=== PATIENT | male | born 1985 | race Two or more races ===

== ENCOUNTER 2024-10-16 20:56 | Observation (INO) ==
[2024-10-16 21:28] LABS: Hematocrit (blood only) 43.3 % (42.0-52.0); Hemoglobin 14.8 g/dl (14.0-18.0); Immature Granulocytes # (auto) 0.02 K/uL (0.01-0.20); Immature Granulocytes % (auto) 0.3 %; Mean Corpuscular Hemoglobin 28.9 pg (25.0-34.0); Mean Corpuscular Volume 84.6 fL (80.0-100.0); Platelet Count 192 K/uL (130-400); RDW Standard Deviation 37.0 fL (36.4-46.3); Red Blood Count 5.12 M/uL (4.70-6.10); White Blood Count 7.53 K/ul (4.8-10.8)
[2024-10-16 21:49] LABS: Alanine Aminotransferase 30.0 U/L (7-52); Albumin Globulin Ratio 1.4 (0.9-2); Alkaline Phosphatase 83.0 U/L (34-104); Anion Gap 5.0 (3-11); Bilirubin,Total 0.4 mg/dl (0.2-1.0); Blood Urea Nitrogen 12.0 mg/dl (6-23); Calcium 9.1 mg/dl (8.6-10.3); Carbon Dioxide 27.0 mmol/L (21-32); Chloride 108.0 mmol/L (98-107); Creatinine Clr Calc Pharmacy 108.0 ml/min; Globulin 3.0 gm/dl (2.5-4.0); Glucose 121.0 mg/dl (70-99(Fasting)); Potassium 3.8 mmol/L (3.5-5.1); Sodium 140.0 mmol/L (136-145); Total Protein 7.3 gm/dl (6.0-8.3)
[2024-10-16 21:55] LABS: INR 1.0 (0.9-1.1); Partial Thromboplastin Time 29 Seconds (21-31); Prothrombin Time 10.7 Seconds (9.0-12.0)
[2024-10-16] MEDS: OPTIRAY 320 125ml IV ONE (23:53)
--- NOTE | 2024-10-16 23:53 | Emergency Department Note ---
Impression & Plan Left sided numbness, Chest pain ED Provider Note NAME: SANDY [id number] RADHA AGE: 39 SEX: Male INFORMANT: Patient ED PROVIDER(S): Perry Osei MD CHIEF COMPLAINT: Left-sided numbness and chest pain PLAN: Disposition: Admitted Outpatient prescription management: none Referral: None MEDICAL DECISION MAKING: Patient presented because of left-sided tingling and chest discomfort. Cardiac troponins were negative x 2. ECG did not show any acute ischemia. CT and CT angiography was performed. Patient had a nonfocal neurologic examination. There was a delay in imaging secondary to a backlog from radiology. No obvious abnormalities were noted on CT or CT angiography of the head and neck. Given the neurologic symptoms and chest discomfort further evaluation management in the hospital is felt to be appropriate. Consultation was made with Dr. Herbie Scott of the [facility] service. Patient was evaluated in the ER for further management. Care/management discussed with: none Level of care consideration(s): After review of the information above and other included data, I feel the patient requires escalation of care to admission Triage Nursing notes: reviewed and agree them. Vital Signs: reviewed and remarkable for no significant abnormalities Additional History obtained from: none Chronic Medical/Social Conditions affecting care: none Prior/ Outside/ External records reviewed: none Differential Diagnosis: Cardiac ischemia, TIA, CVA, aortic dissection, pulmonary embolism, pneumothorax, pneumonia, pericarditis, myocarditis, esophageal rupture, GERD, cholecystitis, pancreatitis, musculoskeletal, as well as other pathologies. Diagnostics, independently interpreted by me: ECG: Twelve-lead ECG reveals normal sinus rhythm at [address] elevation or depression. No PACs or PVCs. Cardiac Monitoring: Cardiac monitoring ordered by me: The patient was placed on continuous cardiac monitoring and observed. It revealed a normal sinus rhythm at 80 beats per minute without ectopy or evidence of dysrhythmia. Medical decision rules: none Imaging studies: Chest x-ray. Findings: A chest x-ray was performed and revealed no pneumothorax, effusion, infiltrate, pulmonary edema, free air under the diaphragm, or wide mediastinum. Impression: No acute disease. HPI: 39 year old Male arrives for evaluation of left-sided numbness and chest pain. This started around 7 PM and is nearly resolved. The patient also notes the following associated symptoms, none. Patient states that he was working on paperwork and developed numbness and tingling in the left side of his face. This migrated down through his left arm and all the way down through his left leg. He also noted some in his genitalia. Patient denies any right sided symptoms. At the same time he was getting chest discomfort. Patient was seen at the [facility] and ECG was normal. EMS was summoned. EMS noted no deficits. The patient has been given no medication for relieving factors. Current pain is rated as 0/10. Pt denies LOC, headache, fevers, chills, diaphoresis, visual changes, neck pain, breathing difficulties, nausea, vomiting, abdominal pain, back pain, melena, hematochezia, urinary symptoms, weakness, lymphadenopathy, rash, or other complaints.. PAST MEDICAL HISTORY: See Below, patient denies PAST SURGICAL HISTORY: See Below, SOCIAL HISTORY: See Below, incarcerated HOME MEDICATIONS: See Below ALLERGIES: See Below VITALS: See Below PHYSICAL EXAMINATION: GENERAL: Awake, alert, well-appearing, in no distress HENT: Normocephalic, atraumatic. Oropharynx unremarkable. EYES: Normal conjunctiva. Sclera non-icteric. PERRLA. EOMI. NECK: Inspection normal. Non-tender. Supple. No nuchal rigidity. FROM. No masses. RESPIRATORY: Clear to auscultation. No wheezes. No rales. Normal respiratory effort. CARDIAC: Normal rate. Normal rhythm. No murmurs. No rubs. Extremities warm and well perfused. Pulses equal. No JVD. GI: Soft, non-distended. No tenderness to palpation. No rebound or guarding. No masses. RECTAL: Deferred. MUSCULOSKELETAL: Atraumatic. Chest examination reveals no tenderness. The back is symmetrical on inspection without obvious abnormality. There is no CVA tenderness to palpation. No joint edema. LOWER EXTREMITIES: Calves are equal size bilaterally and non-tender. No edema. No discoloration. NEURO: Normal sensorium. Patient had some subjective tingling in the face but no other sensory or motor deficits noted. No drift. Normal rapid alternating movements. Speech normal. SKIN: No rash or jaundice noted. PROCEDURES: none CRITICAL CARE: none OBSERVATION NOTE: none Past Med/Surg History Problem List (Updated 10/17/24 @ 03:43 by Carla Mack PA-C) Hyperlipidemia Spinal stenosis of cervical region Chest pain (Acute) Left sided numbness (Acute) Social History Smoking Status: Never smoker Hx Alcohol Use: No Hx Substance Use: No Preferred Language: [place] Rican Communication Ability: Effective Digital Media Strategist Required: No Beliefs That Will Affect Care: None Current Living Situation: Other Feels Safe at Home: Yes Assistive Devices: None Allergies Allergies Allergy/AdvReac Type Severity Reaction Status Date / Time No Known Allergies Allergy Unverified 10/16/24 22:16 Home Meds Home Medications Medication Instructions Recorded Confirmed atorvastatin 40 mg tablet 40 mg PO DAILY 10/16/24 10/16/24 mirtazapine 15 mg tablet 15 mg PO HS 10/16/24 10/16/24 Results & Data (ED) Vital Signs Vital Signs - 24 hr 10/16/24 21:02 10/16/24 21:04 10/16/24 21:13 Temperature 36.7 C Temperature Source Oral Pulse Rate 75 79 Pulse Rate [Finger] Respiratory Rate 20 Blood Pressure 152/96 H Blood Pressure [Left Arm] Blood Pressure Mean 114 Blood Pressure Mean [Left Arm] Blood Pressure Position Sitting Pulse Oximetry 97 97 Oxygen Delivery Method Room Air Room Air Sepsis Recent Fever Within 48 Hours No Sepsis New/Unexplained Change in Mental Status N/A Sepsis Action Taken by Nursing No Action Required 10/16/24 22:03 10/16/24 23:00 10/17/24 00:30 Temperature Temperature Source Pulse Rate 69 61 Pulse Rate [Finger] 80 Respiratory Rate 20 16 18 Blood Pressure 145/98 H 159/111 H Blood Pressure [Left Arm] 152/96 H Blood Pressure Mean 115 120 Blood Pressure Mean [Left Arm] 114 Blood Pressure Position Pulse Oximetry 97 97 97 Oxygen Delivery Method Room Air Sepsis Recent Fever Within 48 Hours Sepsis New/Unexplained Change in Mental Status Sepsis Action Taken by Nursing 10/17/24 01:01 10/17/24 01:34 10/17/24 02:00 Temperature Temperature Source Pulse Rate 69 58 L 55 L Pulse Rate [Finger] Respiratory Rate 18 20 Blood Pressure 153/97 H 151/93 H Blood Pressure [Left Arm] Blood Pressure Mean 104 109 Blood Pressure Mean [Left Arm] Blood Pressure Position Pulse Oximetry 97 96 Oxygen Delivery Method Room Air Room Air Sepsis Recent Fever Within 48 Hours Sepsis New/Unexplained Change in Mental Status Sepsis Action Taken by Nursing 10/17/24 02:30 10/17/24 03:00 Temperature Temperature Source Pulse Rate 79 79 Pulse Rate [Finger] Respiratory Rate 18 20 Blood Pressure 133/93 148/93 H Blood Pressure [Left Arm] Blood Pressure Mean 101 112 Blood Pressure Mean [Left Arm] Blood Pressure Position Pulse Oximetry 96 97 Oxygen Delivery Method Room Air Sepsis Recent Fever Within 48 Hours Sepsis New/Unexplained Change in Mental Status Sepsis Action Taken by Nursing Laboratory Data 10/16/24 21:14 10/16/24 21:14 Lab Results 10/16/24 10/16/24 Range/Units 21:14 22:55 WBC 7.53 (4.8-10.8) K/ul RBC 5.12 (4.70-6.10) M/uL Hgb 14.8 (14.0-18.0) g/dl Hct 43.3 (42.0-52.0) % MCV 84.6 (80.0-100.0) fL MCH 28.9 (25.0-34.0) pg MCHC 34.2 (32.0-36.0) g/dL RDW Std Deviation 37.0 (36.4-46.3) fL RDW Coeff of Jessi 12.3 (11.5-14.5) % Plt Count 192 (130-400) K/uL MPV 10.4 (9.4-12.4) fL Immature Gran % (Auto) 0.3 % Neut % (Auto) 50.3 % Lymph % (Auto) 38.1 % Bacon % (Auto) 8.0 % Eos % (Auto) 2.9 % Baso % (Auto) 0.4 % Neut # (Auto) 3.79 (1.40-6.50) K/uL Lymph # (Auto) 2.87 (1.20-3.40) K/uL Bacon # (Auto) 0.60 H (0.11-0.59) K/uL Eos # (Auto) 0.22 (0.00-0.50) K/uL Baso # (Auto) 0.03 (0.00-0.20) K/uL Immature Gran # (Auto) 0.02 (0.01-0.20) K/uL PT 10.7 (9.0-12.0) Seconds INR 1.0 (0.9-1.1) APTT 29 (21-31) Seconds PTT Ratio 1.1 Sodium 140 (136-145) mmol/L Potassium 3.8 (3.5-5.1) mmol/L Chloride 108 H (98-107) mmol/L Carbon Dioxide 27 (21-32) mmol/L Anion Gap 5 (3-11) BUN 12 (6-23) mg/dl Creatinine 1.11 (0.6-1.4) mg/dl Est Cr Clr Drug Dosing 108.0 ml/min eGFR 86.09 BUN/Creatinine Ratio 10.8 (10-20) Glucose 121 H (70-99(Fasting)) mg/dl Calcium 9.1 (8.6-10.3) mg/dl Total Bilirubin 0.4 (0.2-1.0) mg/dl AST 28 (13-39) U/L ALT 30 (7-52) U/L Alkaline Phosphatase 83 (34-104) U/L Troponin I High Sens 17.4 18.0 (0-20) pg/ml Total Protein 7.3 (6.0-8.3) gm/dl Albumin 4.3 (3.4-5.0) gm/dl Globulin 3.0 (2.5-4.0) gm/dl Albumin/Globulin Ratio 1.4 (0.9-2) Administered Medications Aspirin (Aspirin 81 Mg Ectab) 81 mg PO [facility] Stop: 11/16/24 08:59 Last Admin: 10/17/24 08:55 Dose: 81 mg Documented By: MANAV Atorvastatin Calcium (Atorvastatin 40 Mg Tab) 40 mg PO DAILY [facility] Stop: 11/16/24 08:59 Last Admin: 10/17/24 08:55 Dose: 40 mg Documented By: MANAV Clopidogrel Bis[facility] ([facility]rel [facility] 75 Mg Tab) [facility]: 11/16/24 08:59 Last Admin: 10/17/24 08:55 Dose: 75 mg Documented By: MANAV Cyanocobalamin (Cyanocobalamin (B-12) 500 Mcg Tablet) 1,000 [facility]cg [facility] Stop: 11/16/24 17:29 Last Admin: 10/17/24 17:55 Dose: 1,000 mcg Documented By: MANAV Discontinued Medications Aspirin (Aspirin Chew 324 Mg) 324 mg PO NOW [facility] Stop: 10/17/24 03:28 Last Admin: 10/17/24 03:48 Dose: 324 mg Documented By: MARIANO Clopidogrel Bisulfate (Clopidogrel Bisulfate 300 Mg Tab) 300 mg PO NOW [facility] Stop: 10/17/24 03:28 Last Admin: 10/17/24 03:48 Dose: 300 mg Documented By: MARIANO Ioversol (Optiray 320 125ml) 118 ml IV ONCE ONE Stop: 10/16/24 23:54 Last Admin: 10/16/24 23:53 Dose: 118 ml Documented By: LEÓN Imaging Data Radiologist's Impression: Chest X-Ray 10/16/24 21:10 Exam(s): XR CXR 1 VIEW EXAM: XR Chest, 1 View CLINICAL HISTORY: Reason for exam: Chest pain, nonspecific. TECHNIQUE: Frontal view of the chest. COMPARISON: No relevant prior studies available. FINDINGS: Lungs: Mild to moderate peribronchial thickening of the central and lower lobe bronchi.. No consolidation. Pleural space: Unremarkable. No pneumothorax. Heart: Unremarkable. No cardiomegaly. Mediastinum: Unremarkable. Normal mediastinal contour. Bones/joints: Unremarkable. No acute fracture. IMPRESSION: Bronchitis, which may be of infectious or inflammatory etiologies. No consolidation or pleural effusion. Electronically signed by: Deb Munroe MD 10/17/24 00:15 AM Head CTA 10/16/24 23:13 Exam(s): CTA HEAD W/WO Contrast IV Amt: 118 cc's optiray 320- EXAM: CT Angiography Head Without and With Intravenous Contrast CLINICAL HISTORY: Reason for exam: left sided numbness. TECHNIQUE: Axial computed tomographic angiography images of the head without and with intravenous contrast. CTDI is 22.84 mGy and DLP is 11.42 mGy-cm. Automated exposure control was utilized for the study. A dose lowering technique was utilized adhering to the principles of ALARA. MIP reconstructed images were created and reviewed. CONTRAST: Patient received 118 cc's optiray 320- of IV contrast COMPARISON: No relevant prior studies available. FINDINGS: VASCULATURE: The dural venous sinuses are patent. Right internal carotid artery: No acute findings. Intracranial segment is patent with no significant stenosis. No aneurysm. Right anterior cerebral artery: Unremarkable. No occlusion or significant stenosis. No aneurysm. Right middle cerebral artery: Unremarkable. No occlusion or significant stenosis. No aneurysm. Right posterior cerebral artery: Unremarkable. No occlusion or significant stenosis. No aneurysm. Right vertebral artery: Unremarkable as visualized. Left internal carotid artery: No acute findings. Intracranial segment is patent with no significant stenosis. No aneurysm. Left anterior cerebral artery: Unremarkable. No occlusion or significant stenosis. No aneurysm. Left middle cerebral artery: Unremarkable. No occlusion or significant stenosis. No aneurysm. Left posterior cerebral artery: Unremarkable. No occlusion or significant stenosis. No aneurysm. Left vertebral artery: Unremarkable as visualized. Basilar artery: Unremarkable. No occlusion or significant stenosis. No aneurysm. HEAD: Brain: No acute findings. No hemorrhage. No edema. Normal enhancement. Ventricles: Unremarkable. No ventriculomegaly. Bones/joints: No acute fracture. Soft tissues: Unremarkable. Sinuses: Unremarkable as visualized. No acute sinusitis. Mastoid air cells: Unremarkable as visualized. No mastoid effusion. IMPRESSION: Negative CT angiogram of the head. Electronically signed by: Deb Munroe MD 10/17/24 02:51 AM Neck CTA 10/16/24 23:13 Exam(s): CTA NECK With Contrast IV Amt: 118 cc's optiray 320 EXAM: CT Angiography Neck With Intravenous Contrast CLINICAL HISTORY: Reason for exam: left numbness. TECHNIQUE: Routine carotid CT angiography protocol was performed with intravenous contrast. NASCET criteria using the distal ICAs for comparison were used for evaluation of stenoses. CTDI is 13.24 mGy and DLP is 543.55 mGy-cm. Automated exposure control was utilized for the study. A dose lowering technique was utilized adhering to the principles of ALARA. MIP reconstructed images were created and reviewed. CONTRAST: Patient received 118 cc's optiray 320 of IV contrast COMPARISON: None. FINDINGS: VASCULATURE: Right common carotid artery: Unremarkable. No occlusion or significant stenosis. No dissection. Right internal carotid artery: Unremarkable. Extracranial segment is patent with no occlusion or significant stenosis. No dissection. Right external carotid artery: Unremarkable. No occlusion. Right vertebral artery: Unremarkable. No occlusion or significant stenosis. No dissection. Left common carotid artery: Unremarkable. No occlusion or significant stenosis. No dissection. Left internal carotid artery: Unremarkable. Extracranial segment is patent with no occlusion or significant stenosis. No dissection. Left external carotid artery: Unremarkable. No occlusion. Left vertebral artery: Unremarkable. No occlusion or significant stenosis. No dissection. NECK: Bones/joints: There is a critical spinal canal stenosis at C5-6.. No acute fracture. Soft tissues: Prominent mediastinal lymph nodes. Prominent cervical lymph nodes in the left tonsils. Lung apices: Bronchitis. CAROTID STENOSIS REFERENCE USING NASCET CRITERIA: % ICA stenosis = (1 - narrowest ICA diameter/diameter of distal cervical ICA) x 100. Mild - <50% stenosis. Moderate - 50-69% stenosis. Severe - 70-94% stenosis. Near occlusion - 95-99% stenosis. Occluded - 100% stenosis. IMPRESSION: Negative CTA neck. Critical spinal canal stenosis at C5-6. Recommend MRI of the cervical spine to evaluate for myelopathy. Electronically signed by: Deb Munroe MD 10/17/24 02:47 AM Discharge Plan Visit Data Chief Complaint: Chest Pain Stated Complaint: Chest Pain, L Sided Numbness ED Provider: Perry Osei Discharge Problem: Left sided numbness, Chest pain Patient Disposition: Admitted As Inpatient Condition: Good Discharge Instructions Interventions: ED Discharge Assessment Last Done: 10/17/24 04:27
--- NOTE | 2024-10-17 00:16 | XRay Report ---
Exam(s): XR CXR 1 VIEW EXAM: XR Chest, 1 View CLINICAL HISTORY: Reason for exam: Chest pain, nonspecific. TECHNIQUE: Frontal view of the chest. COMPARISON: No relevant prior studies available. FINDINGS: Lungs: Mild to moderate peribronchial thickening of the central and lower lobe bronchi.. No consolidation. Pleural space: Unremarkable. No pneumothorax. Heart: Unremarkable. No cardiomegaly. Mediastinum: Unremarkable. Normal mediastinal contour. Bones/joints: Unremarkable. No acute fracture. IMPRESSION: Bronchitis, which may be of infectious or inflammatory etiologies. No consolidation or pleural effusion. Electronically signed by: Deb Munroe MD 10/17/24 00:15 AM
--- NOTE | 2024-10-17 02:48 | CT Scan Report ---
Exam(s): CTA NECK With Contrast IV Amt: 118 cc's optiray 320 EXAM: CT Angiography Neck With Intravenous Contrast CLINICAL HISTORY: Reason for exam: left numbness. TECHNIQUE: Routine carotid CT angiography protocol was performed with intravenous contrast. NASCET criteria using the distal ICAs for comparison were used for evaluation of stenoses. CTDI is 13.24 mGy and DLP is 543.55 mGy-cm. Automated exposure control was utilized for the study. A dose lowering technique was utilized adhering to the principles of ALARA. MIP reconstructed images were created and reviewed. CONTRAST: Patient received 118 cc's optiray 320 of IV contrast COMPARISON: None. FINDINGS: VASCULATURE: Right common carotid artery: Unremarkable. No occlusion or significant stenosis. No dissection. Right internal carotid artery: Unremarkable. Extracranial segment is patent with no occlusion or significant stenosis. No dissection. Right external carotid artery: Unremarkable. No occlusion. Right vertebral artery: Unremarkable. No occlusion or significant stenosis. No dissection. Left common carotid artery: Unremarkable. No occlusion or significant stenosis. No dissection. Left internal carotid artery: Unremarkable. Extracranial segment is patent with no occlusion or significant stenosis. No dissection. Left external carotid artery: Unremarkable. No occlusion. Left vertebral artery: Unremarkable. No occlusion or significant stenosis. No dissection. NECK: Bones/joints: There is a critical spinal canal stenosis at C5-6.. No acute fracture. Soft tissues: Prominent mediastinal lymph nodes. Prominent cervical lymph nodes in the left tonsils. Lung apices: Bronchitis. CAROTID STENOSIS REFERENCE USING NASCET CRITERIA: % ICA stenosis = (1 - narrowest ICA diameter/diameter of distal cervical ICA) x 100. Mild - <50% stenosis. Moderate - 50-69% stenosis. Severe - 70-94% stenosis. Near occlusion - 95-99% stenosis. Occluded - 100% stenosis. IMPRESSION: Negative CTA neck. Critical spinal canal stenosis at C5-6. Recommend MRI of the cervical spine to evaluate for myelopathy. Electronically signed by: Deb Munroe MD 10/17/24 02:47 AM
--- NOTE | 2024-10-17 02:53 | CT Scan Report ---
Exam(s): CTA HEAD W/WO Contrast IV Amt: 118 cc's optiray 320- EXAM: CT Angiography Head Without and With Intravenous Contrast CLINICAL HISTORY: Reason for exam: left sided numbness. TECHNIQUE: Axial computed tomographic angiography images of the head without and with intravenous contrast. CTDI is 22.84 mGy and DLP is 11.42 mGy-cm. Automated exposure control was utilized for the study. A dose lowering technique was utilized adhering to the principles of ALARA. MIP reconstructed images were created and reviewed. CONTRAST: Patient received 118 cc's optiray 320- of IV contrast COMPARISON: No relevant prior studies available. FINDINGS: VASCULATURE: The dural venous sinuses are patent. Right internal carotid artery: No acute findings. Intracranial segment is patent with no significant stenosis. No aneurysm. Right anterior cerebral artery: Unremarkable. No occlusion or significant stenosis. No aneurysm. Right middle cerebral artery: Unremarkable. No occlusion or significant stenosis. No aneurysm. Right posterior cerebral artery: Unremarkable. No occlusion or significant stenosis. No aneurysm. Right vertebral artery: Unremarkable as visualized. Left internal carotid artery: No acute findings. Intracranial segment is patent with no significant stenosis. No aneurysm. Left anterior cerebral artery: Unremarkable. No occlusion or significant stenosis. No aneurysm. Left middle cerebral artery: Unremarkable. No occlusion or significant stenosis. No aneurysm. Left posterior cerebral artery: Unremarkable. No occlusion or significant stenosis. No aneurysm. Left vertebral artery: Unremarkable as visualized. Basilar artery: Unremarkable. No occlusion or significant stenosis. No aneurysm. HEAD: Brain: No acute findings. No hemorrhage. No edema. Normal enhancement. Ventricles: Unremarkable. No ventriculomegaly. Bones/joints: No acute fracture. Soft tissues: Unremarkable. Sinuses: Unremarkable as visualized. No acute sinusitis. Mastoid air cells: Unremarkable as visualized. No mastoid effusion. IMPRESSION: Negative CT angiogram of the head. Electronically signed by: Deb Munroe MD 10/17/24 02:51 AM
--- NOTE | 2024-10-17 03:14 | History & Physical Report ---
Date of Service October 17, 2024 Assessment & Plan (1) Left sided numbness: (2) Spinal stenosis of cervical region: (3) Chest pain: (4) Hyperlipidemia: Plan Patient is a 39-year-old male with past medical history of hyperlipidemia. Patient presented with chest pain and numbness in his arms and legs that began at approximately 1900 7/3, he notes a significant family of cardiac history. Patient was worked up for chest pain versus CVA in which's head and neck CTA which revealed critical spinal stenosis of C5-C6, CXR negative, EKG showed normal sinus rhythm without ischemic changes, 17.4-18.0. He is being admitted for CVA workup and further workup of his spinal stenosis. #CVA workup - head and neck CTA negative for acute changes other than spinal stenosis noted below. Patient with left facial, UE, LE numbness improved but present at time of admission. - stroke without TNK order set (no TNK given outside of time interval) - active ROM, no IVs left side, Q4H neuro checks, pt/ot evals - asa + plavix load given on admission - continue with ASA 81mg and Plavix 75 Mg daily - continue Atorvastatin 40 mg daily - Allow for permissive hypertension with goal parameters 220/110 until MRI resulted - no acute changes seen, decrease systolic <180 - Telemetry monitoring - MRI brain ordered - echo with bubble study ordered - lipid panel and A1C with AM labs #critical spinal stenosis neck MRI revealed critical spinous stenosis at level of C5/C6. Patient with numbness above however facial numbness on explained by cervical stenosis. Cervical spine MRI ordered [facility] consulted PT/OT evals #Chest pain patient reports chest tightness at 1900 that resolved by time of admission. Troponin 17.4 trended to 18.0. EKG showed NSR without ischemic changes. CXR negative. Echo with CVA workup as above EKG with chest pain as needed Telemetry monitoring Repeat troponin with a.m. labs #HLDcontinue home atorvastatin VTE ppx: SCDs Dispo: med/telemetry Admission and Anticipated Discharge Date Admission Date: 10/17/24 History of Present Illness Chief Complaint: chest pain Primary Care Provider: MARISA [facility] Patient is a 39-year-old male with past medical history of hyperlipidemia. Patient presented with chest pain and numbness in his arms and legs that began at approximately 1900 7/3, he notes a significant family of cardiac history. Patient was worked up for chest pain versus CVA in which's head and neck CTA which revealed critical spinal stenosis of C5-C6, CXR negative, EKG showed normal sinus rhythm without ischemic changes, 17.4-18.0. He is being admitted for CVA workup and further workup of his spinal stenosis. Patient seen at bedside with alf guards present. He stated at approximately 1900 he developed chest tightness as well as left facial, arm, and leg numbness. The chest tightness has resolved however the numbness is still present but improved. he also endorses lightheadedness during the episode. He denies any slurred speech, confusion, facial droop, falls, significant pain of extremities. He denies any personal history of CVA or significant cardiac history. He notes his mother does have a history of significant heart issues and previous stroke. He works out without significant chest pain or shortness of breath, he was at rest when the symptoms began. He denies significant past smoking history. Allergies Allergy/AdvReac Type Severity Reaction Status Date / Time No Known Allergies Allergy Unverified 10/16/24 22:16 Home Medications Medication Instructions Recorded Confirmed Type atorvastatin 40 mg tablet 40 mg PO DAILY 10/16/24 10/16/24 History mirtazapine 15 mg tablet 15 mg PO HS 10/16/24 10/16/24 History Past Med/Surg History Problem List (Updated 10/17/24 @ 03:43 by Carla Mack PA-C) Hyperlipidemia Spinal stenosis of cervical region Chest pain (Acute) Left sided numbness (Acute) Social History Smoking Status: Former smoker Feels Safe at Home: Yes Review of Systems Review of Systems: see HPI Physical Exam Physical Exam: The patient is awake, alert and oriented 3, well developed and well nourished, normocephalic and atraumatic, in no acute distress. Non-toxic appearing. HEENT- EOMI, mucous membranes moist. Hearing grossly intact. Heart-normal S1 and S2. No murmurs, rubs or gallops. Lungs-clear bilaterally, no respiratory distress, no accessory muscle use. Abdomen-normal bowel sounds and soft. No ascites noted. Non-tender. Extremities- no clubbing, cyanosis, or edema. Psychiatric-normal affect. Musculoskeletal: no cyanosis or clubbing, extremities motor strength 5/5 Neurologic: PERRL, EOMI, accommodation nl, no face palsy, no dysarthria CN's II-XI intact bilaterally; not confused Motor/Sensory: + sensory deficit ( Numbness of left face, UE, LE) Results & Data Results & Data Vital Signs (Past 12 Hours) Vital Signs Temp Pulse Pulse Resp BP BP Pulse Ox 10/17/24 02:30 79 18 133/93 96 10/17/24 02:00 55 L 20 151/93 H 96 10/17/24 01:34 58 L 18 153/97 H 97 10/17/24 01:01 69 10/17/24 00:30 61 18 159/111 H 97 10/16/24 23:00 69 16 145/98 H 97 10/16/24 22:03 80 20 152/96 H 97 10/16/24 21:13 97 10/16/24 21:04 79 10/16/24 21:02 36.7 C 75 20 152/96 H 97 O2 Del Method 10/17/24 02:30 Room Air 10/17/24 02:00 Room Air 10/17/24 01:34 Room Air 10/17/24 01:01 10/17/24 00:30 10/16/24 23:00 10/16/24 22:03 Room Air 10/16/24 21:13 Room Air 10/16/24 21:04 10/16/24 21:02 Room Air Laboratory Results reviewed CBC, CMP, troponin Diagnostic Findings reviewed CXR, head CTA, neck CTA Medications Administered EDnone Admissionaspirin 325 mg p.o., Plavix 300 Mg p.o. ECG Additional Comments: NSR, no ischemic changes Code Status & VTE Plan Code Status full VTE Prophylaxis Plan VTE Prophylaxis will be ordered: Yes Supervising Physician Co-Signing Physician Notes Patient seen and examined, chart reviewed, case discussed with Carla Mack PA-C and I agree with the assessment and plan as above except as otherwise noted Labs and images reviewed 39-year-old male who presents with chest pain, numbness of the left face/arm/leg. Chest discomfort has resolved. Continues to have some numbness of the left side. CTneck shows critical C5-C6 stenosis. No hx strength loss. Patient also has facial numbness which is not explained by his cervical stenosis. Initially received DAPT for CVA eval and sx not completely explained by neck stenosis. 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 He is not a thrombolysis candidate at time of assessment. MRIbrain and MRIC-spine ordered. Agree with above. PG Care Time/CCT Total # of Minutes Spent Total Time Spent with Patient: Total time spent is greater than 50% in coordination of care (as documented) at patient's floor/unit and/or counseling patient: Coding Level of Care Code 58456 INT INP/OBS CARE 3/75MIN Diagnoses Left sided numbness R20.0 Spinal stenosis of cervical region M48.02 Chest pain R07.9 Hyperlipidemia E78.5
[2024-10-17] MEDS: ASPIRIN CHEW 324 MG PO STA (03:48)
[2024-10-17] MEDS: CLOPIDOGREL BISULFATE 300 MG TAB PO STA (03:48)
[2024-10-17] MEDS ORDERED: PHARMACIST DISCHARGE MED REC CONSULT PRN (04:51)
[2024-10-17] MEDS ORDERED: ACETAMINOPHEN 325 MG TAB PO PRN (04:51)
[2024-10-17] MEDS ORDERED: ONDANSETRON INJ 2 MG/ML 2 ML VIAL IV PRN (04:51)
[2024-10-17] MEDS ORDERED: MELATONIN 3 MG TAB PO PRN (04:51)
[2024-10-17] MEDS ORDERED: DOCUSATE SODIUM 100 MG CAP PO PRN (04:51)
[2024-10-17] MEDS: ASPIRIN 81 MG ECTAB PO SCH (08:55)
[2024-10-17] MEDS: ATORVASTATIN 40 MG TAB PO SCH (08:55)
[2024-10-17] MEDS: CLOPIDOGREL BISULFATE 75 MG TAB PO SCH (08:55)
--- NOTE | 2024-10-17 12:03 | Magnetic Resonance Report ---
HISTORY: Left-sided numbness. Spinal stenosis. Chest pain. TECHNIQUE: Multiplanar multiecho MR imaging of the brain without contrast. COMPARISON: None. FINDINGS: No areas of restricted diffusion to suggest acute infarct. The sella is not expanded. The cerebellar tonsils do not extend below the foramen magnum.Small scattered foci of T2/FLAIR hyperintensity involving the periventricular and subcortical white matter. These lesions are nonspecific and more than expected for age. 5-10 lesions are present. The brain parenchyma otherwise demonstrates normal signal intensity on T2/FLAIR weighted imaging. Ventricular caliber is appropriate. Fourth ventricle is midline. The basal cisterns are patent. The major intracranial flow voids are maintained. The globes and orbits are unremarkable. Mucous retention cyst or polyp in the right maxillary sinus. No paranasal sinus air-fluid levels. Mastoid air cells are well aerated. IMPRESSION: * No acute intracranial findings. No evidence of acute infarct, intracranial hemorrhage, or mass effect. * Scattered nonspecific foci of T2/FLAIR hyperintensity involving the periventricular and subcortical white matter. Broad differential includes chronic microvascular ischemic changes, chronic migraine headaches, demyelinating disease, or other infectious or inflammatory etiologies. Electronically signed by Perry Keys 10-17-2024 12:03 PM
--- NOTE | 2024-10-17 12:22 | Magnetic Resonance Report ---
HISTORY: Left-sided numbness. Cervical spine stenosis. TECHNIQUE: Multiplanar multiecho MR imaging of the cervical spine without the use of IV contrast. COMPARISON: None. FINDINGS: Straightening of cervical curvature. No significant listhesis. Vertebral body heights are maintained without compression deformity. Signal intensity of the bone marrow is normal. Cerebellar tonsils do not extend below the foramen magnum. The cervical spinal cord is normal in caliber and signal intensity. The pre and paravertebral soft tissues are unremarkable. At C2-3: Posterior disc bulge mildly narrows the central canal. Left foraminal Disc protrusion mildly narrows the left neural foramen. Right neural foramen is patent. At C3-4: Mild posterior disc bulge mildly narrows the central canal. Mild right neural foraminal stenosis. At C4-5: No significant canal or foraminal stenosis. At C5-6: Moderate degenerative disc disease. Broad-based posterior disc osteophyte complex effaces the CSF space And severely narrows the central canal. Mid sagittal AP diam of the canal measuring 6 mm. Mild cord compression. No cord edema or cord signal change. The neuroforamina are patent. At C6-7: Mild degenerative disc disease. Posterior disc bulge mildly narrows the central canal. At C7-T1: No significant canal or foraminal stenosis. IMPRESSION: * Severe central canal stenosis at C5-6 related to posterior disc osteophyte complex. Complete effacement of the CSF space with mild compression of the cervical spinal cord. Mid sagittal AP diam of the canal measuring 0.6 cm. No cord edema or cord signal change. * Additional mild multilevel degenerative changes of the cervical spine are detailed above by level. Electronically signed by Perry Keys 10-17-2024 12:22 PM
--- NOTE | 2024-10-17 14:40 | Hospitalist Progress Note ---
Date of Service October 17, 2024 Assessment & Plan (1) Left sided numbness: (2) Spinal stenosis of cervical region: (3) Chest pain: (4) Hyperlipidemia: Plan 39-year-old male with past medical history of hyperlipidemia. Patient presented with chest pain and numbness in his left face, left arm and left leg. Had 2 other more minor episodes of left-sided numbness over the last several months. Yesterday evening had penile numbness as well. #left-sided numbness - - MRI brain neg for acute or chronic CVA; multiple periventricular white matter lesions seen b/l - symptoms improved but not fully resolved - asa + plavix load given on admission - continue with ASA 81mg and Plavix 75 Mg daily until seen by neurology - continue Atorvastatin 40 mg daily; check lipids am - echo with bubble study ordered - results pending - checked RPR, B12, lyme, sed rate, crp - all negative except B12 is low-normal - will replace - etiology for numbness?? - care d/w Dr Newsome, [facility]; he will see patient tomorrow on 10/18 #severe cervical spinal stenosis - neck MRI revealed severe spinous stenosis at C5/C6 - the facial numbness is not explained by the C5/C6 disease - discussed his care with Dr Shaffer who will eval on 10/18 - no evidence of myelopathy on exam today #Chest pain - patient reports chest tightness that resolved by time of admission. Troponin 17.4 trended to 18.0. - EKG - NSR without ischemic changes - echo #Hyperlipidemia - - continue home atorvastatin - check lipids am Admission and Anticipated Discharge Date Admission Date: October 17, 2024 Subjective patient confirms that his entire (or at least 2/3) left face was numb, entire L arm was numb, and entire L leg was also numb starting yesterday about 7pm facial numbness improved still having some numbness of the left arm minimal amount of numbness of left leg has had perhaps 2 other minor episodes of left-sided numbness over the last couple of months, both times were quite transient no migraines or headache history history of multiple episodes of head trauma over the years denies any symptoms on the right denies any motor weakness denies any speech difficulty or swallowing difficulty denies chronic neck pain Physical Exam Physical Exam: gen - WD, WN, NAD face - slight difference in sensation over left face vs right face (decreased on left) neck - no JVD heart - RRR, s1 s2, no murmur lungs - CTA b/l abd - soft NT ND BS+ ext - no edema, pulses 2+ b/l neuro - modest decrease in sensation over left arm and left leg to light touch vs RUE/RLE; motor strength 5/5 x 4 exts; normal bulk/tone; no ankle clonus; DTRs 2+ b/l upper and lower extremities Results & Data Results & Data Vital Signs (Past 12 Hours) Vital Signs Temp Pulse Pulse Resp BP BP Pulse Ox 10/17/24 12:59 67 10/17/24 08:06 36.7 C 69 18 123/77 98 10/17/24 05:50 56 L 10/17/24 05:06 36.6 C 63 16 157/98 H 99 10/17/24 04:55 63 10/17/24 04:51 36.6 C 63 16 158/98 H 99 10/17/24 04:00 63 18 150/91 H 98 10/17/24 03:00 79 20 148/93 H 97 O2 Del Method 10/17/24 12:59 10/17/24 08:06 Room Air 10/17/24 05:50 10/17/24 05:06 Room Air 10/17/24 04:55 10/17/24 04:51 Room Air 10/17/24 04:00 Room Air 10/17/24 03:00 Laboratory Results Laboratory Results - last 24 hr 10/17/24 10/17/24 05:23 15:31 ESR 8 Magnesium 2.1 C-Reactive Protein < 0.50 Vitamin B12 244 TSH 1.658 Nasal Screen MRSA (PCR) Negative Treponema pallidum Ab Negative Lyme Disease Screen Negative PG Care Time/CCT Total # of Minutes Spent Total Time Spent with Patient: Total time spent is greater than 50% in coordination of care (as documented) at patient's floor/unit and/or counseling patient: Coding Level of Care Code None Diagnoses Left sided numbness R20.0 Spinal stenosis of cervical region M48.02 Chest pain R07.9 Hyperlipidemia E78.5
[2024-10-17 16:12] LABS: Magnesium 2.1 mg/dl (1.7-2.4)
[2024-10-17 16:27] LABS: Thyroid Stimulating Hormone 1.658 uIu/ml (0.300-4.500)
[2024-10-17] MEDS: CYANOCOBALAMIN (B-12) 500 MCG TABLET PO SCH (17:55)
[2024-10-17] MEDS: MIRTAZAPINE TAB 15 MG TAB PO SCH (20:02)
[2024-10-18 06:39] LABS: Hematocrit (blood only) 45.6 % (42.0-52.0); Hemoglobin 15.6 g/dl (14.0-18.0); Immature Granulocytes # (auto) 0.01 K/uL (0.01-0.20); Immature Granulocytes % (auto) 0.2 %; Mean Corpuscular Hemoglobin 28.9 pg (25.0-34.0); Mean Corpuscular Volume 84.6 fL (80.0-100.0); Platelet Count 193 K/uL (130-400); RDW Standard Deviation 37.2 fL (36.4-46.3); Red Blood Count 5.39 M/uL (4.70-6.10); White Blood Count 6.28 K/ul (4.8-10.8)
[2024-10-18 06:59] LABS: Alanine Aminotransferase 26.0 U/L (7-52); Albumin Globulin Ratio 1.6 (0.9-2); Alkaline Phosphatase 77.0 U/L (34-104); Anion Gap 5.0 (3-11); Bilirubin,Total 0.4 mg/dl (0.2-1.0); Blood Urea Nitrogen 11.0 mg/dl (6-23); Calcium 8.9 mg/dl (8.6-10.3); Carbon Dioxide 28.0 mmol/L (21-32); Chloride 108.0 mmol/L (98-107); Cholesterol 169.0 mg/dl (0-200); Creatinine Clr Calc Pharmacy 96.5 ml/min; Globulin 2.7 gm/dl (2.5-4.0); Glucose 102.0 mg/dl (70-99(Fasting)); HDL Cholesterol 32.0 mg/dl; Magnesium 2.0 mg/dl (1.7-2.4); Potassium 4.1 mmol/L (3.5-5.1); Sodium 141.0 mmol/L (136-145); Total Protein 7.0 gm/dl (6.0-8.3); Triglycerides 213.0 mg/dl (0-150)
[2024-10-18 07:14] LABS: Hemoglobin A1C 5.5 % (4.5-5.6)
--- NOTE | 2024-10-18 10:25 | Orthopedic Consultation ---
Date of Consultation October 18, 2024 Assessment & Plan (1) Spinal stenosis of cervical region: MRI of the cervical spine does demonstrate evidence of disc osteophyte complex C5-C6. There is spinal canal stenosis at modest neuroforaminal disease. There is no cord contour change or myelomalacia noted. Based on exam and MRI findings I am not convinced that his cervical spine is contributing to his current symptom complex. Would not recommend any surgical intervention on the neck at this point. History of Present Illness Reason for Consultation: Left-sided facial arm and leg numbness. Attending Physician: Chuy Isaacs MD History of Present Illness This is a 39-year-old male that presents with numbness affecting the left side of his body. He denies any precipitating trauma fall or event. He states somewhat improved over the past few days in the hospital. Allergies Allergy/AdvReac Type Severity Reaction Status Date / Time No Known Allergies Allergy Unverified 10/16/24 22:16 Home Medications Medication Instructions Recorded Confirmed Type atorvastatin 40 mg tablet 40 mg PO DAILY 10/16/24 10/16/24 History mirtazapine 15 mg tablet 15 mg PO HS 10/16/24 10/16/24 History Patient History Social History Smoking Status: Never smoker Hx Alcohol Use: No Hx Substance Use: No Preferred Language: Azerbaijani Communication Ability: Effective Control Operator Required: No Beliefs That Will Affect Care: None Current Living Situation: Other Feels Safe at Home: Yes Assistive Devices: None Physical Exam Physical Exam: On exam patient has full cervical range of motion without Lhermitte's phenomenon or Spurling sign. He has reasonable strength testing. Sensory is intact. Negative Senia sign. Results & Data Vital Signs (Past 12 Hours) Vital Signs Temp Pulse Pulse Resp BP Pulse Ox Pulse Ox 10/18/24 08:20 36.7 C 61 18 168/80 H 95 10/18/24 06:45 56 L 10/18/24 04:51 97 10/18/24 03:26 36.5 C 60 16 118/70 97 10/17/24 22:26 36.6 C 62 16 156/82 H 95 O2 Del Method O2 Del Method 10/18/24 08:20 Room Air 10/18/24 06:45 10/18/24 04:51 Room Air 10/18/24 03:26 Room Air 10/17/24 22:26 Room Air
--- NOTE | 2024-10-18 13:37 | XCELERA ---
[id number]
[2024-10-18] MEDS: GADOBUTROL 65ML VIAL IV ONE (17:00)
--- NOTE | 2024-10-18 18:36 | Hospitalist Progress Note ---
Date of Service October 18, 2024 Assessment & Plan (1) Left sided numbness: (2) Spinal stenosis of cervical region: (3) Chest pain: (4) Hyperlipidemia: Plan 39-year-old male with past medical history of hyperlipidemia. Patient presented with chest pain and numbness in his left face, left arm and left leg. Had 2 other more minor episodes of left-sided numbness over the last several months. Had penile numbness as well prior to admission. 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 - care d/w Dr Newsome, [facility], by phone; plan for repeat MRI brain WITH contrast this time due to persistent left facial numbness - once results are available will d/w Dr Newsome again #severe cervical spinal stenosis - neck MRI revealed severe spinous stenosis at C5/C6 - the facial numbness is not explained by the C5/C6 disease - discussed his care with Dr Shaffer who evaluated the patient today and he does not feel the c-spine DJD is causing current symptoms (I agree w/ his assessment) #Chest pain - patient reported chest tightness that resolved by time of admission. Troponin 17.4 trended to 18.0. - EKG - NSR without ischemic changes - echo with normal EF and normal LV wall motion - uncertain of etiology #Hyperlipidemia - - continue home atorvastatin - consider dose increase from 40mg daily to 80mg daily Admission and Anticipated Discharge Date Admission Date: October 17, 2024 Subjective LUE and LLE numbness fully resolved still with very mild residual numbness of left side of face no headache no motor weakness no new neuro symptoms feels good overall tele wn overnight Review of Systems Review of Systems: cv - no cp pulm - no dyspnea GI - no pain Physical Exam Physical Exam: gen - WD, WN, NAD - looks good face - no droop neck - no JVD heart - RRR, s1 s2, no murmur lungs - CTA b/l abd - soft NT ND BS+ ext - no edema, pulses 2+ b/l neuro - modest decrease in sensation over entire left side of face including upper 1/3 vs the right side of face; motor strength 5/5 x 4 exts; normal bulk/to ne; sensation intact to light touch x 4 extremities with no asymmetry CN 3-12 intact except sensation of the left face Results & Data Results & Data Vital Signs (Past 12 Hours) Vital Signs Temp Pulse Pulse Resp BP Pulse Ox O2 Del Method 10/18/24 15:41 36.7 C 61 17 133/83 98 Room Air 10/18/24 13:08 68 10/18/24 12:18 36.8 C 76 17 145/80 H 97 Room Air 10/18/24 08:20 36.7 C 61 18 168/80 H 95 Room Air 10/18/24 06:45 56 L Laboratory Results Laboratory Results - last 24 hr 10/18/24 06:00 WBC 6.28 RBC 5.39 Hgb 15.6 Hct 45.6 MCV 84.6 MCH 28.9 MCHC 34.2 RDW Std Deviation 37.2 RDW Coeff of Jessi 12.3 Plt Count 193 MPV 10.9 Immature Gran % (Auto) 0.2 Neut % (Auto) 53.8 Lymph % (Auto) 31.8 [place] % (Auto) 9.6 Eos % (Auto) 4.1 Baso % (Auto) 0.5 Neut # (Auto) 3.38 Lymph # (Auto) 2.00 [place] # (Auto) 0.60 H Eos # (Auto) 0.26 Baso # (Auto) 0.03 Immature Gran # (Auto) 0.01 Sodium 141 Potassium 4.1 Chloride 108 H Carbon Dioxide 28 Anion Gap 5 BUN 11 Creatinine 1.25 Est Cr Clr Drug Dosing 96.5 eGFR 74.65 BUN/Creatinine Ratio 8.8 L Glucose 102 H Estimat Average Glucose 111 Hemoglobin A1c 5.5 Calcium 8.9 Magnesium 2.0 Total Bilirubin 0.4 AST 21 ALT 26 Alkaline Phosphatase 77 Troponin I High Sens 18.6 Total Protein 7.0 Albumin 4.3 Globulin 2.7 Albumin/Globulin Ratio 1.6 Triglycerides 213 H Cholesterol 169 LDL Cholesterol, Calc 94 VLDL Cholesterol, Calc 43 H HDL Cholesterol 32 Cholesterol/HDL Ratio 5.3 H Diagnostic Findings echo - normal EF, normal RV function, normal valves PG Care Time/CCT Total # of Minutes Spent Total Time Spent with Patient: Total time spent is greater than 50% in coordination of care (as documented) at patient's floor/unit and/or counseling patient: Coding Level of Care Code 73022 SUB INP/OBS CARE 2/35MIN Diagnoses Left sided numbness R20.0 Spinal stenosis of cervical region M48.02 Chest pain R07.9 Hyperlipidemia E78.5
--- NOTE | 2024-10-18 20:55 | Magnetic Resonance Report ---
Exam(s): MRI HEAD W/WO Contrast IV Amt: 10.3cc gadavist EXAM: MR Head Without and With Intravenous Contrast CLINICAL HISTORY: Reason for exam: persistent L facial numbness; prior abnormal brain MRI. TECHNIQUE: Magnetic resonance images of the head/brain without and with intravenous contrast in multiple planes. CONTRAST: Patient received 10.3cc Gadavist of IV contrast COMPARISON: October 17 2024 FINDINGS: Brain: There are several scattered 3-4 mm subcortical and deep white matter T2 hyperintensities throughout the brain, unchanged since previous. These are nonspecific in appearance and not typical of multiple sclerosis plaques. No areas of diffusion restriction are seen to indicate acute stroke. No hemorrhage. No areas of abnormal contrast enhancement are seen within the brain. Ventricles: Unremarkable. No ventriculomegaly. Bones/joints: Unremarkable. No acute fracture. 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 No follow-up is required. Sinuses: There is a 1.8 cm polyp or mucous retention cysts of the right maxillary sinus. The remaining sinuses are unremarkable. No acute sinusitis. Mastoid air cells: Unremarkable as visualized. No mastoid effusion. Orbits: Unremarkable as visualized. Other findings: No hemorrhage or areas of abnormal susceptibility. IMPRESSION: 1. There are several scattered 3-4 mm subcortical and deep white matter T2 hyperintensities throughout the brain, unchanged since previous. These are nonspecific in appearance and not typical of multiple sclerosis plaques. No areas of diffusion restriction are seen to indicate acute stroke. 2. No areas of abnormal contrast enhancement are seen within the brain. Electronically signed by: Yosi Oakley MD 10/18/24 20:54 PM
[2024-10-19 06:23] LABS: Hematocrit (blood only) 45.5 % (42.0-52.0); Hemoglobin 15.9 g/dl (14.0-18.0); Immature Granulocytes # (auto) 0.01 K/uL (0.01-0.20); Immature Granulocytes % (auto) 0.1 %; Mean Corpuscular Hemoglobin 29.1 pg (25.0-34.0); Mean Corpuscular Volume 83.2 fL (80.0-100.0); Platelet Count 196 K/uL (130-400); RDW Standard Deviation 37.2 fL (36.4-46.3); Red Blood Count 5.47 M/uL (4.70-6.10); White Blood Count 7.35 K/ul (4.8-10.8)
[2024-10-19 06:50] LABS: Alanine Aminotransferase 28.0 U/L (7-52); Albumin Globulin Ratio 1.7 (0.9-2); Alkaline Phosphatase 77.0 U/L (34-104); Anion Gap 7.0 (3-11); Bilirubin,Total 0.6 mg/dl (0.2-1.0); Blood Urea Nitrogen 12.0 mg/dl (6-23); Calcium 9.2 mg/dl (8.6-10.3); Carbon Dioxide 26.0 mmol/L (21-32); Chloride 107.0 mmol/L (98-107); Creatinine Clr Calc Pharmacy 109.5 ml/min; Globulin 2.7 gm/dl (2.5-4.0); Glucose 99.0 mg/dl (70-99(Fasting)); Potassium 4.0 mmol/L (3.5-5.1); Sodium 140.0 mmol/L (136-145); Total Protein 7.2 gm/dl (6.0-8.3)
[2024-10-19] MEDS ORDERED: STROKE PATIENT DISCHARGE STA (12:16)
--- NOTE | 2024-10-19 12:25 | Discharge Summary ---
Discharge Summary Date of Service date of admission - October 17, 2024 date of discharge - October 19, 2024 Principal Dx & Hospital Course #1 = Principal Diagnosis (1) Left sided numbness: (2) Spinal stenosis of cervical region: (3) Chest pain: (4) Hyperlipidemia: (5) Enlarged lymph nodes: Plan 39-year-old male with past medical history of hyperlipidemia. Patient presented with chest pain and numbness in his left face, left arm and left leg. Had 2 other more minor episodes of left-sided numbness over the last several months. He also reported transient penile numbness along with his left-sided symptoms prior to admission. #left-sided numbness - entire left face, left arm, left leg; LUE/LLE numbness resolved within 24 hours, but he had residual numbness of left face that lasted longer (36 hours or longer) - - etiology uncertain; persistent left facial numbness (entire face) would suggest trigeminal nerve impairment on left - initial MRI brain was negative for acute or chronic CVA; multiple periventricular white matter lesions were seen b/l, however - asa + plavix load given on admission - continued on Atorvastatin - echo showed normal EF and normal valve function; normal LV wall motion was seen as well - checked RPR, B12, lyme, sed rate, crp - all negative except B12 level was low- normal (244) - will replace - etiology for persistent left-sided facial numbness?? - care d/w Dr Kobe Newsome, [facility], by phone -given his persistent left-sided facial numbness (still had such 36 hours into the stay) repeat MRI brain WITH contrast was obtained - the 2nd brain MRI was also negative for any acute pathology - by the AM of October 19 his left-sided facial numbness had resolved - exact etiology of his presenting symptoms was uncertain - certainly a TIA would explain his symptoms if they had only lasted <24 hours, but his symptoms - particularly the face - lasted much longer - he never had headache to suggest complex migraine - he never had fever or other infectious symptoms or mental status changes to suggest meningitis/encephalitis - although there were several periventricular white matter lesions suspicion for multiple sclerosis was VERY low - in the event his symptoms were from some form of atypical TIA he was advised the following - -continue aspirin 81mg daily -continue lipitor but increase to 80mg daily (was on 40mg prior) -follow-up with [facility] or other neurology group given the unusual time frame of his symptoms -also consider a 14-day monitor to rule out arrhythmia as the cause of his symptoms #severe cervical spinal stenosis - neck MRI revealed severe spinous stenosis at C5/C6 - the facial numbness would NOT be explained by the C5/C6 disease - Dr Romaine Shaffer from [facility]-spine evaluated the patient and he did not feel the c-spine DJD was causing his current symptoms #Chest pain - patient reported chest tightness that resolved by time of admission. Troponin was 17.4 at admission and peak was 18.6 - EKG - NSR without ischemic changes - echo with normal EF and normal LV wall motion - telemetry was normal; no arrhythmia was seen - uncertain of etiology of his chest pain but ischemia felt less likely #Hyperlipidemia - - lipid profile: -LDL 94 -HDL 32 -triglycerides 213 - the above parameters were on atorvastatin 40mg daily - in light of his presenting symptoms it was advised he increase the atorvastatin to 80mg daily #low-normal vitamin B12 level - - vitamin B12 level was 244 - advised vitamin B12 supplementation 1000mcg daily x 6 months - recommend f/u B12 level in 6 months # enlarged intra-thoracic lymph nodes - - borderline enlarged mediastinal lymph nodes detected incidentally on imaging - recommend dedicated chest CT in the near-future for further characterization Admission HPI Per Admitting Provider Patient is a 39-year-old male with past medical history of hyperlipidemia. Patient presented with chest pain and numbness in his arms and legs that began at approximately 1900 10/16, he notes a significant family of cardiac history. Patient was worked up for chest pain versus CVA in which's head and neck CTA which revealed critical spinal stenosis of C5-C6, CXR negative, EKG showed normal sinus rhythm without ischemic changes, 17.4-18.0. He is being admitted for CVA workup and further workup of his spinal stenosis. Patient seen at bedside with residential guards present. He stated at approximately 1900 he developed chest tightness as well as left facial, arm, and leg numbness. The chest tightness has resolved however the numbness is still present but improved. he also endorses lightheadedness during the episode. He denies any slurred speech, confusion, facial droop, falls, significant pain of extremities. He denies any personal history of CVA or significant cardiac history. He notes his mother does have a history of significant heart issues and previous stroke. He works out without significant chest pain or shortness of breath, he was at rest when the symptoms began. He denies significant past smoking history. Discharge Exam gen - WD, WN, NAD - looks well face - no droop, no numbness either side of face neck - no JVD heart - RRR, s1 s2, no murmur lungs - CTA b/l abd - soft NT ND BS+ ext - no edema, pulses 2+ b/l neuro - motor strength 5/5 x 4 exts; normal bulk/tone; sensation intact to light touch x 4 extremities with no asymmetry; normal sensation b/l face; other CN's intact Discharge Plan Discharge Items [facility] Reason For Visit: LEFT SIDED NUMBNESS Discharge Diagnosis: 1. left-sided numbness (entire left half of face, left arm, left leg) - resolved; etiology uncertain; MRI brain x 2 negative for stroke; neurology follow-up advised 2. vitamin B12 deficiency (B12 level = 244) 3. minimal periventricular white matter lesions on MRI brain - etiology uncertain; neurology follow-up advised 4. elevated blood pressure without diagnosis of HTN; resolved, BPs now normal 5. hyperlipidemia 6. C5-C6 degenerative disc disease of the neck - evaluated by orthopedics, felt NOT to be causing his left-sided numbness 7. incidental finding of "prominent" mediastinal lymph nodes on CT imaging; advise dedicated outpatient CT scan of chest 8. chest discomfort - resolved; no evidence of heart attack; echocardiogram normal, telemetry while here was normal Condition on Discharge: Good Activity: As commented below Activity Comment: recommend light activities only for 1 week; nothing strenuous Lifting Comment: no heavy lifting over 20 pounds for about 1 week Exercise Comment: no heavy exertional activities for about 1 week Non-emergency contact: Primary Care Provider and Neurologist Call non-emergency contact if: you have any medication questions and your symptoms worsen Follow-up/Referrals: Jacky Newsome MD [Physician] - (2-4 weeks - follow-up for left sided numbness, abnormal brain MRI ) Cecille CUNNINGHAM [Primary Care Provider] - Diet: Regular Addtl Attending Provider Instructions: Mr Collazo was hospitalized due to left-sided numbness. This included the entire left side of the face, left arm, and left leg. Symptoms abated over a 2-day period. By discharge all numbness was resolved. MRI brain x 2 did NOT show stroke. There were a few periventricular white matter lesions seen on brain MRI - not suspicious for or felt to be due to multiple sclerosis, however. Exact etiology uncertain - perhaps due to underlying atherosclerotic disease, perhaps due to prior head injuries, etc. Exact cause of his numbness was uncertain, especially given the prolonged symptoms and the fact that 2 brain MRIs were negative for acute stroke. Potentially a prolonged TIA (transient ischemic attack)? He does have C5-C6 degenerative disc disease of the neck but he was seen by orthopedics and this was felt NOT to be the primary cause of his left-sided symptoms. With respect to the numbness - B12 level was mildly low. TSH was normal. Lyme test was negative. Sed rate/crp were both normal. Electrolytes were normal. A1c was 5.5%. Syphilis test was negative. Recommendations - 1. start aspirin 81mg daily 2. increase atorvastatin to 80mg daily 3. vitamin B12 1000mcg orally daily x 6 months 4. consider a 14-day heart monitor - if available at the residential - to rule out heart rhythm problems that can cause episodes of numbness 5. neurology follow-up with Dr Kobe Newsome - [facility] - within 2-4 weeks 6. incidental finding of borderline enlarged mediastinal lymph nodes - consider dedicated chest CT in the near-future Pending Studies at Discharge: No Stand-Alone Forms: My [facility] [employer], Smoking Cessation Skilled Items Patient informed of condition?: Yes Discharge Level of Care: Other Communicable Disease: No Discharge Prognosis: Stable Lines: None Urinary Catheter: No Medications and DC Order Prescriptions: New aspirin 81 mg Tablet,Delayed Release (Dr/Ec) 81 mg PO QAM Qty: 30 5RF cyanocobalamin (vitamin B-12) 1,000 mcg capsule 1,000 mcg PO DAILY Qty: 90 1RF Rx Instructions: take daily for 6 months then stop Continued mirtazapine 15 mg Tablet 15 mg PO HS Changed atorvastatin 80 mg tablet 80 mg PO DAILY Qty: 30 0RF Discharge Orders: Discharge Order (Routine); Ordered 10/19/24 Ordered By: Chuy Isaacs Admission Data Admit Date/Time: 10/18/24 18:36 Attending Provider: Chuy Isaacs Admit Provider: Herbie Scott Primary Care Provider: Cecille CUNNINGHAM Other Providers: Hebrie Scott; Felipe Shaffer Other Interventions: Discharge Summary Assessment (RN) Last Done: 10/19/24 10:35 Hospital Stay Data Consultations 10/17/24 04:51 Consult Orthopedic Spine Surgery Routine Procedures Performed echocardiogram - EF 55-60%, normal valve function Diagnostic Imagining Performed Chest X-Ray 10/16/24 21:10 Exam(s): XR CXR 1 VIEW EXAM: XR Chest, 1 View CLINICAL HISTORY: Reason for exam: Chest pain, nonspecific. TECHNIQUE: Frontal view of the chest. COMPARISON: No relevant prior studies available. FINDINGS: Lungs: Mild to moderate peribronchial thickening of the central and lower lobe bronchi.. No consolidation. Pleural space: Unremarkable. No pneumothorax. Heart: Unremarkable. No cardiomegaly. Mediastinum: Unremarkable. Normal mediastinal contour. Bones/joints: Unremarkable. No acute fracture. IMPRESSION: Bronchitis, which may be of infectious or inflammatory etiologies. No consolidation or pleural effusion. Electronically signed by: Deb Munroe MD 10/17/24 00:15 AM Head CTA 10/16/24 23:13 Exam(s): CTA HEAD W/WO Contrast IV Amt: 118 cc's optiray 320- EXAM: CT Angiography Head Without and With Intravenous Contrast CLINICAL HISTORY: Reason for exam: left sided numbness. TECHNIQUE: Axial computed tomographic angiography images of the head without and with intravenous contrast. CTDI is 22.84 mGy and DLP is 11.42 mGy-cm. Automated exposure control was utilized for the study. A dose lowering technique was utilized adhering to the principles of ALARA. MIP reconstructed images were created and reviewed. CONTRAST: Patient received 118 cc's optiray 320- of IV contrast COMPARISON: No relevant prior studies available. FINDINGS: VASCULATURE: The dural venous sinuses are patent. Right internal carotid artery: No acute findings. Intracranial segment is patent with no significant stenosis. No aneurysm. Right anterior cerebral artery: Unremarkable. No occlusion or significant stenosis. No aneurysm. Right middle cerebral artery: Unremarkable. No occlusion or significant stenosis. No aneurysm. Right posterior cerebral artery: Unremarkable. No occlusion or significant stenosis. No aneurysm. Right vertebral artery: Unremarkable as visualized. Left internal carotid artery: No acute findings. Intracranial segment is patent with no significant stenosis. No aneurysm. Left anterior cerebral artery: Unremarkable. No occlusion or significant stenosis. No aneurysm. Left middle cerebral artery: Unremarkable. No occlusion or significant stenosis. No aneurysm. Left posterior cerebral artery: Unremarkable. No occlusion or significant stenosis. No aneurysm. Left vertebral artery: Unremarkable as visualized. Basilar artery: Unremarkable. No occlusion or significant stenosis. No aneurysm. HEAD: Brain: No acute findings. No hemorrhage. No edema. Normal enhancement. Ventricles: Unremarkable. No ventriculomegaly. Bones/joints: No acute fracture. Soft tissues: Unremarkable. Sinuses: Unremarkable as visualized. No acute sinusitis. Mastoid air cells: Unremarkable as visualized. No mastoid effusion. IMPRESSION: Negative CT angiogram of the head. Electronically signed by: Deb Munroe MD 10/17/24 02:51 AM Neck CTA 10/16/24 23:13 Exam(s): CTA NECK With Contrast IV Amt: 118 cc's optiray 320 EXAM: CT Angiography Neck With Intravenous Contrast CLINICAL HISTORY: Reason for exam: left numbness. TECHNIQUE: Routine carotid CT angiography protocol was performed with intravenous contrast. NASCET criteria using the distal ICAs for comparison were used for evaluation of stenoses. CTDI is 13.24 mGy and DLP is 543.55 mGy-cm. Automated exposure control was utilized for the study. A dose lowering technique was utilized adhering to the principles of ALARA. MIP reconstructed images were created and reviewed. CONTRAST: Patient received 118 cc's optiray 320 of IV contrast COMPARISON: None. FINDINGS: VASCULATURE: Right common carotid artery: Unremarkable. No occlusion or significant stenosis. No dissection. Right internal carotid artery: Unremarkable. Extracranial segment is patent with no occlusion or significant stenosis. No dissection. Right external carotid artery: Unremarkable. No occlusion. Right vertebral artery: Unremarkable. No occlusion or significant stenosis. No dissection. Left common carotid artery: Unremarkable. No occlusion or significant stenosis. No dissection. Left internal carotid artery: Unremarkable. Extracranial segment is patent with no occlusion or significant stenosis. No dissection. Left external carotid artery: Unremarkable. No occlusion. Left vertebral artery: Unremarkable. No occlusion or significant stenosis. No dissection. NECK: Bones/joints: There is a critical spinal canal stenosis at C5-6.. No acute fracture. Soft tissues: Prominent mediastinal lymph nodes. Prominent cervical lymph nodes in the left tonsils. Lung apices: Bronchitis. CAROTID STENOSIS REFERENCE USING NASCET CRITERIA: % ICA stenosis = (1 - narrowest ICA diameter/diameter of distal cervical ICA) x 100. Mild - <50% stenosis. Moderate - 50-69% stenosis. Severe - 70-94% stenosis. Near occlusion - 95-99% stenosis. Occluded - 100% stenosis. IMPRESSION: Negative CTA neck. Critical spinal canal stenosis at C5-6. Recommend MRI of the cervical spine to evaluate for myelopathy. Electronically signed by: eDb Munroe MD 10/17/24 02:47 AM Cervical Spine MRI 10/17/24 04:00 HISTORY: Left-sided numbness. Cervical spine stenosis. TECHNIQUE: Multiplanar multiecho MR imaging of the cervical spine without the use of IV contrast. COMPARISON: None. FINDINGS: Straightening of cervical curvature. No significant listhesis. Vertebral body heights are maintained without compression deformity. Signal intensity of the bone marrow is normal. Cerebellar tonsils do not extend below the foramen magnum. The cervical spinal cord is normal in caliber and signal intensity. The pre and paravertebral soft tissues are unremarkable. At C2-3: Posterior disc bulge mildly narrows the central canal. Left foraminal Disc protrusion mildly narrows the left neural foramen. Right neural foramen is patent. At C3-4: Mild posterior disc bulge mildly narrows the central canal. Mild right neural foraminal stenosis. At C4-5: No significant canal or foraminal stenosis. At C5-6: Moderate degenerative disc disease. Broad-based posterior disc osteophyte complex effaces the CSF space And severely narrows the central canal. Mid sagittal AP diam of the canal measuring 6 mm. Mild cord compression. No cord edema or cord signal change. The neuroforamina are patent. At C6-7: Mild degenerative disc disease. Posterior disc bulge mildly narrows the central canal. At C7-T1: No significant canal or foraminal stenosis. IMPRESSION: * Severe central canal stenosis at C5-6 related to posterior disc osteophyte complex. Complete effacement of the CSF space with mild compression of the cervical spinal cord. Mid sagittal AP diam of the canal measuring 0.6 cm. No cord edema or cord signal change. * Additional mild multilevel degenerative changes of the cervical spine are detailed above by level. Electronically signed by Perry Keys 10-17-2024 12:22 PM Brain MRI 10/17/24 04:01 HISTORY: Left-sided numbness. Spinal stenosis. Chest pain. TECHNIQUE: Multiplanar multiecho MR imaging of the brain without contrast. COMPARISON: None. FINDINGS: No areas of restricted diffusion to suggest acute infarct. The sella is not expanded. The cerebellar tonsils do not extend below the foramen magnum.Small scattered foci of T2/FLAIR hyperintensity involving the periventricular and subcortical white matter. These lesions are nonspecific and more than expected for age. 5-10 lesions are present. The brain parenchyma otherwise demonstrates normal signal intensity on T2/FLAIR weighted imaging. Ventricular caliber is appropriate. Fourth ventricle is midline. The basal cisterns are patent. The major intracranial flow voids are maintained. The globes and orbits are unremarkable. Mucous retention cyst or polyp in the right maxillary sinus. No paranasal sinus air-fluid levels. Mastoid air cells are well aerated. IMPRESSION: * No acute intracranial findings. No evidence of acute infarct, intracranial hemorrhage, or mass effect. * Scattered nonspecific foci of T2/FLAIR hyperintensity involving the periventricular and subcortical white matter. Broad differential includes chronic microvascular ischemic changes, chronic migraine headaches, demyelinating disease, or other infectious or inflammatory etiologies. Electronically signed by Perry Keys 10-17-2024 12:03 PM Brain MRI 10/18/24 14:20 Exam(s): MRI HEAD W/WO Contrast IV Amt: 10.3cc gadavist EXAM: MR Head Without and With Intravenous Contrast CLINICAL HISTORY: Reason for exam: persistent L facial numbness; prior abnormal brain MRI. TECHNIQUE: Magnetic resonance images of the head/brain without and with intravenous contrast in multiple planes. CONTRAST: Patient received 10.3cc Gadavist of IV contrast COMPARISON: October 17 2024 FINDINGS: Brain: There are several scattered 3-4 mm subcortical and deep white matter T2 hyperintensities throughout the brain, unchanged since previous. These are nonspecific in appearance and not typical of multiple sclerosis plaques. No areas of diffusion restriction are seen to indicate acute stroke. No hemorrhage. No areas of abnormal contrast enhancement are seen within the brain. Ventricles: Unremarkable. No ventriculomegaly. Bones/joints: Unremarkable. No acute fracture. 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 No follow-up is required. Sinuses: There is a 1.8 cm polyp or mucous retention cysts of the right maxillary sinus. The remaining sinuses are unremarkable. No acute sinusitis. Mastoid air cells: Unremarkable as visualized. No mastoid effusion. Orbits: Unremarkable as visualized. Other findings: No hemorrhage or areas of abnormal susceptibility. IMPRESSION: 1. There are several scattered 3-4 mm subcortical and deep white matter T2 hyperintensities throughout the brain, unchanged since previous. These are nonspecific in appearance and not typical of multiple sclerosis plaques. No areas of diffusion restriction are seen to indicate acute stroke. 2. No areas of abnormal contrast enhancement are seen within the brain. Electronically signed by: Yosi Oakley MD 10/18/24 20:54 PM Pending Results Patient Have Any Pending Studies at Discharge: No Discharge Instructions Given to Patient (Per Discharging Provider) Mr Collazo was hospitalized due to left-sided numbness. This included the entire left side of the face, left arm, and left leg. Symptoms abated over a 2-day period. By discharge all numbness was resolved. MRI brain x 2 did NOT show stroke. There were a few periventricular white matter lesions seen on brain MRI - not suspicious for or felt to be due to multiple sclerosis, however. Exact etiology uncertain - perhaps due to underlying atherosclerotic disease, perhaps due to prior head injuries, etc. Exact cause of his numbness was uncertain, especially given the prolonged symptoms and the fact that 2 brain MRIs were negative for acute stroke. Potentially a prolonged TIA (transient ischemic attack)? He does have C5-C6 degenerative disc disease of the neck but he was seen by orthopedics and this was felt NOT to be the primary cause of his left-sided symptoms. With respect to the numbness - B12 level was mildly low. TSH was normal. Lyme test was negative. Sed rate/crp were both normal. Electrolytes were normal. A1c was 5.5%. Syphilis test was negative. Recommendations - 1. start aspirin 81mg daily 2. increase atorvastatin to 80mg daily 3. vitamin B12 1000mcg orally daily x 6 months 4. consider a 14-day heart monitor - if available at the residential - to rule out heart rhythm problems that can cause episodes of numbness 5. neurology follow-up with Dr Kobe Newsome - [facility] - within 2-4 weeks 6. incidental finding of borderline enlarged mediastinal lymph nodes - consider dedicated chest CT in the near-future Total Time Total Time Spent Total Time Spent (In Minutes): 40 Coding Level of Care Code 60193 INP/OBS DISCH >30 MIN Diagnoses Left sided numbness R20.0 Spinal stenosis of cervical region M48.02 Chest pain R07.9 Hyperlipidemia E78.5 Enlarged lymph nodes R59.9
--- NOTE | 2024-10-19 22:10 | Electrocardiogram Report ---
Test Reason : Blood Pressure : */* mmHG Vent. Rate : 73 BPM Atrial Rate : 73 BPM P-R Int : 152 ms QRS Dur : 86 ms QT Int : 352 ms P-R-T Axes : 74 16 17 degrees QTcB Int : 387 ms Normal sinus rhythm Normal ECG No previous ECGs available Confirmed by Fredy Fry ([id number]) on 10/19/2024 10:10:24 PM Referred By: [facility] Confirmed By: Fredy Fry
== END 2024-10-19 14:59 | DRG 93 ==
LOC: 2W 20:56 → ED 20:56 → SUATTDRO 10-17 03:36 → 2W 10-17 04:27